=== PATIENT | female | born 1990 | race Caucasian/White ===

== ENCOUNTER 2017-01-19 23:39 | Emergency (ER) | payer SELFPAY ==
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
[2017-01-20 01:20] VITALS: BP 110/66; PULSE 66; RESP 16; TEMP 97.9; O2SAT 98
== END 2017-01-20 01:23 | disposition home or self-care (01) ==
LOC: EDBD 23:39
DX: F10.121 Alcohol abuse with intoxication delirium (principal)